=== PATIENT | male | born 1950 | race Two or more races ===

== ENCOUNTER 2017-01-11 13:23 | Emergency (ER) | payer OTHER ==
[2017-01-11 13:33] VITALS: TEMP 98.4; BMI 26.1
--- NOTE | 2017-01-11 13:55 | PDOC ---
History of Present Illness - General History Source: Patient Exam Limitations: No Limitations - History of Present Illness Initial Comments: 01/11/17 14:47 The patient is a 66 year old male, with a significant past medical history of GERD, who presents to the emergency department with a feeling of a sleeping head and dizziness for the past 10 days. He denies any pain and notes that his gait has been unsteady for the last 10 days. He reports that he is flying to [place] tomorrow for an extended trip and presents today to make sure everything was ok. He also complaints of nausea that coincides with vertigo. The patient denies chest pain, shortness of breath, fever, chills, vomit, diarrhea and constipation. Allergies: None Past surgical history: Cholecystectomy and right shoulder surgery Social history: Former smoker <Cole Barboza - Last Filed: 01/11/17 14:47> <Honey Gonsales - Last Filed: 01/11/17 15:06> - General Chief Complaint: Lightheaded Stated Complaint: LIGHTHEADED/VERTIGO Time Seen by Provider: 01/11/17 13:55 Past History <Cole Barboza - Last Filed: 01/11/17 14:47> - Past Medical History Cancer: Yes (SKIN) Diabetes: No GI Disorders: Yes (GERD) Hypercholesterolemia: No - Surgical History Cholecystectomy: Yes Orthopedic Surgery: Yes (SHOULDER SX) - Psycho/Social/Smoking Cessation Hx Anxiety: No Suicidal Ideation: No Smoking History: Never smoked Have you smoked in the past 12 months: Yes Number of Cigarettes Smoked Daily: 5 Information on smoking cessation initiated: Yes 'Breaking Loose' booklet given: 01/11/17 Hx Alcohol Use: No Drug/Substance Use Hx: No Substance Use Type: None <Honey Gonsales - Last Filed: 01/11/17 15:06> - Past Medical History Allergies/Adverse Reactions: Allergies Allergy/AdvReac Type Severity Reaction Status Date / Time No Known Drug Allergies Allergy Verified 01/11/17 13:30 Home Medications: Ambulatory Orders Esomeprazole Mag Trihydrate [Nexium] 40 mg PO HS 05/16/13 Review of Systems - Review of Systems Able to Perform ROS?: Yes Comments:: 01/11/17 14:48 GENERAL/CONSTITUTIONAL: No fever or chills. No weakness. HEAD, EYES, EARS, NOSE AND THROAT: No change in vision. No ear pain or discharge. No sore throat. CARDIOVASCULAR: No chest pain or shortness of breath RESPIRATORY: No cough, wheezing, or hemoptysis. GASTROINTESTINAL: No nausea, vomiting, diarrhea or constipation. GENITOURINARY: No dysuria, frequency, or change in urination. MUSCULOSKELETAL: No joint or muscle swelling or pain. No neck or back pain. SKIN: No rash NEUROLOGIC: (+) dizziness. No loss of consciousness, or change in strength/ sensation. ENDOCRINE: No increased thirst. No abnormal weight change HEMATOLOGIC/LYMPHATIC: No anemia, easy bleeding, or history of blood clots. ALLERGIC/IMMUNOLOGIC: No hives or skin allergy. <Cole Barboza - Last Filed: 01/11/17 14:47> *Physical Exam - Vital Signs Last Vital Signs Temp Pulse Resp BP Pulse Ox 98.4 F 79 18 144/88 100 01/11/17 13:31 01/11/17 13:31 01/11/17 13:31 01/11/17 13:31 01/11/17 13:31 - Physical Exam Comments: 01/11/17 14:48 GENERAL: Awake, alert, and fully oriented, in no acute distress HEAD: No signs of trauma, normocephalic, atraumatic EYES: PERRLA, EOMI, sclera anicteric, conjunctiva clear ENT: Auricles normal inspection, hearing grossly normal, nares patent, oropharynx clear without exudates. Moist mucosa. TMs clear bilaterally. NECK: Normal ROM, supple, no lymphadenopathy, JVD, or masses LUNGS: No distress, speaks full sentences, clear to auscultation bilaterally HEART: Regular rate and rhythm, normal S1 and S2, no murmurs, rubs or gallops, peripheral pulses normal and equal bilaterally. ABDOMEN: Soft, nontender, normoactive bowel sounds. No guarding, no rebound. No masses EXTREMITIES: Normal inspection, Normal range of motion, no edema. No clubbing or cyanosis. NEUROLOGICAL: Cranial nerves II through XII grossly intact. Normal speech, normal gait, no focal sensorimotor deficits. SKIN: Warm, Dry, normal turgor, no rashes or lesions noted. <Cole Barboza - Last Filed: 01/11/17 14:47> - Vital Signs Last Vital Signs Temp Pulse Resp BP Pulse Ox 98.4 F 79 18 144/88 100 01/11/17 13:31 01/11/17 13:31 01/11/17 13:31 01/11/17 13:31 01/11/17 13:31 <Honey Gonsales - Last Filed: 01/11/17 15:06> Medical Decision Making - Medical Decision Making 01/11/17 14:59 Pt presents to the ED complaining of a 10 day history of mild vertigo. Also complains that his head is "sleeping" for the last 10 days. Patient is ambulatory in the ED with steady gait. Denies vomiting or fever, but does complain of nausea. Exam, including neurologic exam with cerebellar testing, is normal. patient is ambulatory in the Ed with normal gait. Given the duration of his symptoms and his normal exam, tumor or CVA are unlikely causes of his vertigo. Will discharge home. Patient is travelling to [facility] tomorrow. Will discharge home with instructions to follow up with his PMD on return from [facility]. <Honey Gonsales - Last Filed: 01/11/17 15:06> *DC/Admit/Observation/Transfer - Attestations Scribe Attestion: 01/11/17 14:48 Documentation prepared by Cole Barboza, acting as administrative medical director for Honey Gonsales MD <Cole Barboza - Last Filed: 01/11/17 14:47> <Honey Gonsales - Last Filed: 01/11/17 15:06> Diagnosis at time of Disposition: Vertigo - Discharge Dispostion Disposition: HOME Condition at time of disposition: Good - Patient Instructions Printed Discharge Instructions: Vertigo Additional Instructions: Return to the ED for severe headache, confusion, weakenss on one side of the body of face. Take meclizine as needed for dizziness. Folllow up with your primary care doctor on your return from [facility].
[2017-01-11] MEDS ORDERED: MECLIZINE HCL 25 MG TABLET (FP) PO ONE (15:11)
[2017-01-11] MEDS ORDERED: MECLIZINE HCL 25 MG TABLET (FP) ONE (15:12)
[2017-01-11 15:20] VITALS: BP 136/79; PULSE 85
--- NOTE | 2017-01-12 14:46 | EKG ---
Test Reason : Blood Pressure : / mmHG Vent. Rate : 069 BPM Atrial Rate : 069 BPM P-R Int : 200 ms QRS Dur : 084 ms QT Int : 370 ms P-R-T Axes : 063 025 029 degrees QTc Int : 396 ms NORMAL SINUS RHYTHM NORMAL ECG WHEN COMPARED WITH ECG OF 14-OCT-2006 10:58, NO SIGNIFICANT CHANGE WAS FOUND CORRELATE CLINICALLY Confirmed by MAYRA REEVES MD ([id number]) on 01/12/2017 2:45:36 PM Referred By: Confirmed By:MAYRA REEVES MD
== END 2017-01-11 15:20 | disposition home or self-care (01) ==
LOC: JER 13:23
DX: R42 Dizziness and giddiness (principal); K21.9 Gastro-esophageal reflux disease without esophagitis; Z85.828 Personal history of other malignant neoplasm of skin
CPT/HCPCS: 93005; 93010; 99282-25

== ENCOUNTER 2017-09-21 06:03 | Day surgery (SDC) | payer OTHER ==
[2017-09-20 12:02] VITALS: BMI 27.2
[~2017-09-21 06:03] MED LIST: BSS (NA/CA/MG/K) BALANCED SALT SOLUTION OPHTH SOLN 15 ML BOTTLE OS ONE; CHONDROITIN SU A/HYALUR SOD 1 KIT IO ONE; EPINEPHrine/PF 1 MG/1 ML (1:1,000) AMPULE SQ ONE; LIDOCAINE HCL 1% PRESERVATIVE FREE - 30ML VIAL IO ONE; POVIDONE-IODINE 5% OPHTHALMIC PREP 30 ML SOLUTION OS ONE; TETRACAINE 0.5% OPHTH SOLN 2 ML BOTTLE OS ONE; TOBRA 0.3%/DEXAMETH 0.1% OPHTHALMIC SUSP 2.5 ML BTL TP ONE
[2017-09-21] MEDS ORDERED: CYCLOPENTOLATE HCL 1% OPHTH SOLN 2 ML BOTTLE ONE (06:25)
[2017-09-21] MEDS ORDERED: MOXIFLOXACIN HCL 0.5% OPHTHALMIC 3 ML BOTTLE ONE (06:25)
[2017-09-21] MEDS ORDERED: PHENYLEPHRINE 2.5% OPHTH SOLN 15 ML BOTTLE ONE (06:25)
[2017-09-21] MEDS ORDERED: TROPICAMIDE 0.5% OPHTHALMIC SOLN 15 ML BOTTLE ONE (06:25)
[2017-09-21 06:26] VITALS: TEMP 98.4
[2017-09-21] MEDS: TROPICAMIDE 1% OPHTH SOLN 15 ML BOTTLE OP SCH ×3 (06:30→06:57)
[2017-09-21] MEDS: MOXIFLOXACIN HCL 0.5% OPHTHALMIC 3 ML BOTTLE OP SCH ×3 (06:30→06:57)
[2017-09-21] MEDS: CYCLOPENTOLATE HCL 1% OPHTH SOLN 2 ML BOTTLE OP SCH ×3 (06:30→06:58)
[2017-09-21] MEDS: PHENYLEPHRINE 2.5% OPHTH SOLN 15 ML BOTTLE OP SCH ×3 (06:30→06:57)
[2017-09-21] MEDS ORDERED: EPINEPHrine/PF 1 MG/1 ML (1:1,000) AMPULE ONE (07:28)
[2017-09-21] MEDS ORDERED: POVIDONE-IODINE 5% OPHTHALMIC PREP 30 ML SOLUTION ONE (07:29)
[2017-09-21] MEDS ORDERED: LIDOCAINE HCL/PF 1% SDV 5ML VIAL ONE (07:29)
[2017-09-21] MEDS ORDERED: TETRACAINE 0.5% OPHTH SOLN 2 ML BOTTLE ONE (07:30)
[2017-09-21] MEDS ORDERED: TOBRA 0.3%/DEXAMETH 0.1% OPHTHALMIC SUSP 2.5 ML BTL ONE (07:30)
[2017-09-21] MEDS ORDERED: BSS (NA/CA/MG/K) BALANCED SALT SOLUTION OPHTH SOLN 15 ML BOTTLE ONE (07:30)
[2017-09-21] MEDS ORDERED: MIDAZOLAM HCL 2 MG/2 ML SINGLE DOSE VIAL ONE (07:58)
--- NOTE | 2017-09-21 08:03 | HP ---
History & Physical Update - History History: No Change - Physical Physical: No Change - Assessment Assessment: No Change (Cano) - Plan Plan: No Change
[2017-09-21] MEDS ORDERED: TETRACAINE 0.5% OPHTH SOLN 2 ML BOTTLE OS ONE (08:12)
[2017-09-21] MEDS ORDERED: POVIDONE-IODINE 5% OPHTHALMIC PREP 30 ML SOLUTION OS ONE (08:15)
[2017-09-21] MEDS ORDERED: LIDOCAINE HCL 1% PRESERVATIVE FREE - 30ML VIAL IO ONE (08:23)
[2017-09-21] MEDS ORDERED: BSS (NA/CA/MG/K) BALANCED SALT SOLUTION OPHTH SOLN 15 ML BOTTLE OS ONE (08:23)
[2017-09-21] MEDS ORDERED: CHONDROITIN SU A/HYALUR SOD 1 KIT IO ONE ×2 (08:23)
[2017-09-21] MEDS ORDERED: EPINEPHrine/PF 1 MG/1 ML (1:1,000) AMPULE SQ ONE (08:31)
[2017-09-21] MEDS ORDERED: TOBRA 0.3%/DEXAMETH 0.1% OPHTHALMIC SUSP 2.5 ML BTL TP ONE (08:57)
[2017-09-21 12:21] VITALS: BP 132/76; PULSE 71
--- NOTE | 2017-09-21 15:52 | OP ---
DATE OF OPERATION: 09/21/2017 SURGEON: Juan Weiner MD PREOPERATIVE DIAGNOSIS: Cataract, left eye. OPERATION: Phacoemulsification and intraocular lens implantation, left eye. POSTOPERATIVE DIAGNOSIS: Cataract, left eye. ANESTHESIA: Topical. COMPLICATIONS: None. BLOOD LOSS: None. SPECIMEN: None. BRIEF HISTORY: The patient is a 66-year-old man with no significant past medical history, who presents with decreased vision in the left eye down to 20/50 -2 which was the best corrected visual acuity, and this was due to a 2+ nuclear sclerotic lens with a posterior subcapsular cataract and inferior cortical changes. After the risks, benefits, and alternatives to cataract surgery were discussed with the patient, he consented to surgery for the left eye. DESCRIPTION OF PROCEDURE: The patient was brought to the operating room and prepped and draped in the usual sterile fashion, and an eyelid speculum was inserted in the left eye. A paracentesis was made, and the anterior chamber was inflated with nonpreserved lidocaine. This was followed by injection of Viscoat. A groove was made in the superotemporal clear cornea which was tunneled forward with a crescent blade. The anterior chamber was entered with a 2.75 keratome. The cystotome was used to make an incision in the center of the capsule, and a continuous curvilinear capsulorrhexis was created. The lens was hydrodissected until it was found to rotate freely within the capsular bag. Phacoemulsification was then used to remove the lens in its entirety. Irrigation and aspiration were used to remove residual cortical material. The anterior chamber and capsular bag were reinflated with Provisc, and a 22.0-diopter [id number] AcrySof intraocular lens was injected into the capsular bag using the Russell injector. The lens was dialed into place using a Sinskey hook. Irrigation and aspiration were used to remove residual Viscoelastic. The wound was stromally hydrated until it was found to be watertight and the eye was at an appropriate pressure. The eyelid speculum was removed from the eye, and TobraDex drops and a clear shield were placed over the left eye. The patient was transferred to the recovery room in stable condition and will follow up tomorrow. Berny EDWARD/[id number]
== END 2017-09-21 10:30 | disposition home or self-care (01) ==
LOC: JASU-SURG 06:03
PROVIDERS: ATTEND Ophthalmology
PROC: 08RK3JZ Replacement of Left Lens with Synthetic Substitute, Percutaneous Approach (ICD-10-PCS; principal; 2017-09-21 08:00)
DX: H26.9 Unspecified cataract (principal)